=== PATIENT | female | born 1940 | race Caucasian/White ===

== ENCOUNTER 2017-08-06 14:28 | Inpatient (IN) | payer OTHER ==
[~2017-08-06] VITALS: Ht 165.1 cm; Wt 97.1 kg
--- NOTE | 2017-08-06 15:13 | ED SYNCOPE COMPLAINT ---
History of Present Illness General Chief Complaint: Syncope and Near-Syncope Stated Complaint: BIBA SYNCOPE Source: patient, family Exam Limitations: no limitations Vital Signs & Intake/Output Vital Signs & Intake/Output Vital Signs Date Time Temp Pulse Resp B/P B/P Pulse O2 O2 Flow FiO2 Mean Ox Delivery Rate 08/06 1936 97.8 69 20 167/89 99 Room Air 08/06 1721 98.0 64 18 167/74 98 Room Air 08/06 1625 97.6 60 18 166/72 98 Room Air 08/06 1451 Room Air 08/06 1433 97.6 61 18 170/59 98 Room Air Allergies Coded Allergies: No Known Allergies (08/06/17) Triage Note: PT BIBA FROM HOME WITH C/O WITNESSED EPISODE OF SYNCOPE VS SEIZURE. FAMILY PRESENT REPORTS THAT PT WAS SITTING IN CHAIR WHEN SHE HAD APPROXIMATELY 4 MINUTES OF UNRESPONSIVENESS. NO FALL. NO HEAD STRIKE. FAMILY REPORTS THAT AFTER EPISODE, PT APPEARED TO BE STARING BLANKLY, HAD DIMINISHED VERBAL ABILITY AND INCREASED FORGETFULNESS. PT ARRIVES AWAKE AND ALERT, ANSWERING QUESTIONS APPROPRIATELY. VSS EN ROUTE WITH BG = 134 Triage Nurses Notes Reviewed? yes Timing: single episode today Precipitating Factors: none Episode Description: She was sitting at the table when she suddenly became unresponsive Loss of Consciousness: prolonged (minutes) LMP (ages 10-50): post menopausal : No Patient currently breastfeeds: No HPI: 77-year-old female past medical history of CVA, TIA, carotid stenosis presents for evaluation of a syncopal episode. According the patient's family patient was in her usual state of health and was sitting at the table having coffee. The patient suddenly became unresponsive her head slumped down onto her chest. Family attempted to wake her up the patient remained unresponsive. According to family she was out for 3 or 4 minutes. Patient slowly began to regain consciousness but was unable to speak. The time EMS arrived she was able to say some words. When she arrived to the emergency department she had returned to her baseline. She denies any precipitating symptoms. There is no dizziness lightheaded breath. She does not remember the episode. The family is at bedside if you like she is currently on her baseline. She is on anticoagulation. Patient is usually wheelchair bound at baseline. She does do some ambulation with a walker but only very short distances. (Michi WYNN,Klaus) Reconcile Medications Acetaminophen/Diphenhydramine (Tylenol Pm Ex-Strength Caplet) 500 MG-25 MG TABLET 2 CAP PO QHS PAIN/SLEEP (Reported) Albuterol Sulfate (Ventolin Hfa) 90 MCG HFA.AER.AD 2 PUF INH AD PRN RESP. ( Reported) Atorvastatin Calcium 20 MG TABLET 1 TAB PO DAILY CHOLESTEROL (Reported) Brinzolamide (Azopt) 1 % DROPS.SUSP 1 GTT OU BID BOTH EYES (Reported) Budesonide/Formoterol Fumarate (Symbicort 160-4.5 Mcg Inhaler) 160 MCG-4.5 MCG/ ACTUATION HFA.AER.AD 2 PUF INH BID RESP. (Reported) Donepezil HCl 10 MG TABLET 1 TAB PO DAILY MEMORY (Reported) Gabapentin 600 MG TABLET 1 TAB PO BID NERVE PAIN (Reported) Labetalol HCl 200 MG TABLET 1 TAB PO BID BP (Reported) Lisinopril 10 MG TABLET 1 TAB PO DAILY BP (Reported) Multiple Vitamin (Multivitamins) 1 EACH TABLET 1 TAB PO DAILY SUPPLEMENT ( Reported) Nifedipine (Nifedipine ER) 90 MG TABLET.ER 1 TAB PO DAILY BP (Reported) Oxybutynin Chloride (Oxybutynin Chloride ER) 10 MG TAB.ER.24 1 TAB PO DAILY BLADDER (Reported) Rivaroxaban (Xarelto) 15 MG TABLET 1 TAB PO DAILY BLOOD THINNER (Reported) Travoprost (Travatan Z) 0.004 % DROPS 1 GTT OU QPM BOTH EYES (Reported) (Tommie Machuca DO) Past History Travel History Traveled to [place] past 21 day No Medical History Any Pertinent Medical History? see below for history Surgical History Surgical History: non-contributory Family History Hx Contributory? No (Klaus Vilchis) Review of Systems Review of Systems Constitutional: Reports: no symptoms. EENTM: Reports: no symptoms. Respiratory: Reports: no symptoms. Cardiovascular: Reports: no symptoms. GI: Reports: no symptoms. Genitourinary: Reports: no symptoms. Musculoskeletal: Reports: no symptoms. Skin: Reports: no symptoms. Neurological/Psychological: Reports: see HPI (SYNCOPE ). All Other Systems: Reviewed and Negative (Klaus Vilchis) Physical Exam Physical Exam General Appearance: well developed/nourished, no apparent distress, alert, awake Head: atraumatic, normal appearance Eyes: Bilateral: normal appearance, EOMI, other (MIOTIC PUPILS ). Ears, Nose, Throat: normal pharynx, normal ENT inspection, hearing grossly normal Neck: normal inspection, supple, full range of motion, no carotid bruits Respiratory: normal breath sounds, chest non-tender, no respiratory distress, lungs clear Cardiovascular: regular rate/rhythm, normal peripheral pulses Gastrointestinal: soft, non-tender Back: normal inspection, normal range of motion, no vertebral tenderness Extremities: normal inspection, normal range of motion, no edema Psychiatric: awake, alert, oriented x 3 Cranial Nerves: normal hearing, normal speech, PERRL Coordination/Gait: normal finger to nose Motor/Sensory: no motor/sensory deficits, weak motor strength RLE (baseline), weak motor strength LLE (baseline), moving all extremitiES Skin: intact, normal color, warm/dry Core Measures ACS in differential dx? No CVA/TIA Diagnosis: No Sepsis Present: No Sepsis Focused Exam Completed? No (Klaus Vilchis) Progress Differential Diagnosis: AMI, aortic dissection, aortic valve, drug induced syncope, orthostatic syncope, pulmonary embolus, seizure, subarachnoid hem., TIA /CVA, vasodepressor syncope, ventricular tach/fib Plan of Care: Orders Procedure Date/time Status Heart Healthy Diet 08/07 B Active CBC WITHOUT DIFFERENTIAL 08/07 599 Active BASIC ELECTROLYTES PLUS BUN&CR 08/07 599 Active Heart Healthy Diet 08/06 D Complete TROPONIN LEVEL 08/06 2130 Active EKG 08/06 2130 Active Pathway - chart 08/06 1853 Active House Staff 08/06 1853 Active Patient Data 08/06 1853 Active Code Status 08/06 1853 Active ECHOCARDIOGRAM 08/06 1853 Active Patient Data 08/06 1748 Active ED Holding Orders 08/06 1719 Active Admit to inpatient 08/06 1719 Active Vital Signs 08/06 1719 Active Code Status 08/06 1719 Complete VIT D 25 HYDROXY 08/06 1530 Active THYROID STIMULATING HORMONE 08/06 1530 Active TOTAL IRON BINDING CAPACITY 08/06 1530 Active LIPID PANEL 08/06 1530 Active GLYCOSYLATED HGB 08/06 1530 Active FREE T4 08/06 1530 Active FOLIC ACID 08/06 1530 Active FERRITIN 08/06 1530 Active SERUM IRON 08/06 1530 Active Add-on Test (ER Only) 08/06 1513 Active Intake & Output 08/06 1446 Active Telemetry/Size Worker 08/06 1433 Active URINALYSIS 08/06 143 Active TROPONIN LEVEL 08/06 1433 Active PROLACTIN 08/06 143 Active COMPREHENSIVE METABOLIC PANEL 08/06 143 Active CBC WITHOUT DIFFERENTIAL 08/06 1432 Complete EKG 08/06 1432 Active [id number] DOPPLER 08/06 UNK Active House Staff 08/06 UNK Active Lab Add-on Test 08/06 UNK Active VTE Mechanical Prophylaxis 08/06 UNK Active MISTAKE 08/06 UNK Active Activity/Ambulation 08/06 UNK Active ELECTROENCEPHALOGRAM 08/06 UNK Active Laboratory Tests 08/06/17 1530: Anion Gap 10, Estimated GFR > 60, BUN/Creatinine Ratio 17.8, Glucose 144 H, Hemoglobin A1c Pending, Calcium 9.6, Iron 44, TIBC 389, Ferritin 7.5 L, Total Bilirubin 0.5, AST 19, ALT 23, Alkaline Phosphatase 68, Troponin I < 0.01, Total Protein 6.2 L, Albumin 3.8, Globulin 2.4, Albumin/Globulin Ratio 1.6, Triglycerides 67, Cholesterol 133, LDL Cholesterol, Calc 55 L, HDL Cholesterol 65 H, Cholesterol/HDL Ratio 2.0, 25-OH Vitamin D Total 27.6 L, Folate Pending, TSH 1.860, Free T4 0.97, Prolactin 28.6 H, CBC w Diff NO MAN DIFF REQ, RBC 4.59 , MCV 79.8 L, MCH 25.9 L, MCHC 32.5 L, RDW 17.7 H, MPV 8.1, Gran % 78.3 H, Lymphocytes % 10.5 L, Monocytes % 6.5, Eosinophils % 4.3, Basophils % 0.4, Absolute Granulocytes 5.3, Absolute Lymphocytes 0.7 L, Absolute Monocytes 0.4, Absolute Eosinophils 0.3, Absolute Basophils 0 Patient seen and evaluated. She is here for syncopal episode versus possible TIA. Currently she is back to her baseline. She is at her neurologic baseline. She never had chest pain or shortness of breath. Initial EKG does not show any acute finding. Labs ordered CT head ordered. Blood work is within normal limits. CT head is negative for any acute findings. Chest x-ray clear. Patient currently is at her baseline. She spends most of her time in a wheelchair and goes only short distances with a walker. Due to patient's advanced age and history of previous CVA TIAs she will be admitted for observation after a syncopal episode. She will require telemetry, serial labs, serial EKGs, echocardiogram, MRI, carotid Doppler, cardiology consult. Case discussed with Dr. Machuca he agrees. Diagnostic Imaging: Viewed by Me: Radiology Read, CT Scan. Discussed w/RAD: Radiology Read, CT Scan. Radiology Impression: PATIENT: SUMIT STEVENS PRESENT AGE: 77 PATIENT ACCOUNT NO: [id number] : 38 LOCATION: [facility] ORDERING PHYSICIAN: Klaus WYNN SERVICE DATE: 08/06/17 EXAM TYPE: CAT - CT HEAD WO IV CONTRAST EXAMINATION: CT HEAD WITHOUT CONTRAST CLINICAL INFORMATION: Syncope. Evaluate for intracranial mass. COMPARISON: No relevant prior imaging. TECHNIQUE: Contiguous axial imaging was performed from the skull base to vertex without intravenous administration of contrast. DLP: 615.19 mGy- cm FINDINGS: There is no acute intracranial hemorrhage or abnormal extra-axial collection. No intracranial mass effect or midline shift. Lateral and third ventricles are slightly prominent and there is proportionate prominence of the subarachnoid spaces reflecting a moderate degree of global parenchymal volume loss. There are multiple chronic lacunar infarcts involving the basal ganglia and thalami. Numerous chronic small vessel ischemic changes within the periventricular white matter. Grossly no evidence of acute territorial infarct. The calvarium and skull base are intact. Mastoid air cells and middle ear cavities are well aerated. Visualized paranasal sinuses are well aerated. IMPRESSION: There is moderate global cerebral parenchymal volume loss and numerous chronic small vessel ischemic changes. No evidence of acute territorial infarct or hemorrhage. DICTATED BY: June ROGERS,Sebastian Rangel DATE/TIME DICTATED:09/16 EDITOR & CO FOUNDER:PATY DATE/TIME TRANSCRIBED:08/06/171558 CONFIDENTIAL, DO NOT COPY WITHOUT APPROPRIATE AUTHORIZATION. CXR Impression: PATIENT: SUMIT STEVENS PRESENT AGE: 77 PATIENT ACCOUNT NO: [id number] : 38 LOCATION: [facility] ORDERING PHYSICIAN: Klaus WYNN SERVICE DATE: 08/06/17 EXAM TYPE: RAD - XRY-PORTABLE CHEST XRAY EXAMINATION: XR PORTABLE CHEST CLINICAL INFORMATION: Syncope COMPARISON: None TECHNIQUE: Portable frontal view of the chest was obtained. FINDINGS: The thoracic aorta is unfolded. The heart size is top normal to slightly enlarged. There is some platelike opacity in the left lower lung suggesting atelectasis or scar. No consolidation. No evidence of pulmonary edema. No pleural effusion or pneumothorax. No acute osseous abnormality is visualized. Mild degenerative change of the spine. IMPRESSION: Borderline cardiomegaly. No acute abnormality. DICTATED BY: Mayo Vergara MD DATE/TIME DICTATED:08/06/171557 EDITOR & CO FOUNDER:PATY DATE/TIME TRANSCRIBED:1557 CONFIDENTIAL, DO NOT COPY WITHOUT APPROPRIATE AUTHORIZATION. < Electronically signed in Other Vendor System> SIGNED BY: Mayo Vergara MD 08/06/17 1603 Initial ED EKG: normal sinus rhythm, BORDERLINE IN FERIOR T WAVE CHANGES (Klaus iVlchis) Departure Departure Disposition: STILL A PATIENT Condition: Stable Clinical Impression Primary Impression: Syncope Qualifiers: Syncope type: unspecified Qualified Code: R55 - Syncope and collapse Referrals: Patient Has No Primary Care Dr (PCP/Family) Departure Forms: Customer Survey General Discharge Information Observation Note Spoke With: Justin Hall MD Physician Advisor Notified: TOMMIE MACHUCA DO Place Patient In: Non-ED OBS Care Area Rationale for Observation: My rational for observation is as follows [elemetry, serial labs, serial EKGs, echocardiogram, MRI, carotid Doppler, cardiology consult]. (Klaus Vilchis) Admission Note Spoke With: Justin Hall MD Documentation of Exam: Documentation of any treatments & extenuating circumstances including Concerns Regarding Discharge (functional status, medication knowledge or non-compliance, living conditions, etc.) that warrant an admission rather than observation: [The patient needs admission for serial troponins, telemetry monitoring, neuro checks every 6 hours, consider cardiology consultation] PA/WIRELESS ENGINEER Co-Sign Statement Statement: ED Attending supervision documentation- [x I saw and evaluated the patient. I have also reviewed all the pertinent lab results and diagnostic results. I agree with the findings and the plan of care as documented in the PA's/WIRELESS ENGINEER's documentation. [] I have reviewed the ED Record and agree with the PA's/WIRELESS ENGINEER's documentation. [] Additions or exceptions (if any) to the PAs/WIRELESS ENGINEER's note and plan are summarized below: [] 77-year-old female visiting from [place]. She had a syncopal episode and was out for a period of minutes according to the family. Now she denies chest pain. EKG shows nonspecific changes. She has not low risk on the [place] syncope rule. She is therefore being admitted for serial troponins and telemetry monitoring. (Tommie Machuca DO.)
[2017-08-06 15:36] LABS: ABSOLUTE BASOPHIL COUNT 0 /CUMM (0.0-0.2); ABSOLUTE EOSINOPHIL COUNT 0.3 /CUMM (0.0-0.7); ABSOLUTE GRANULOCYTE CT 5.3 /CUMM (1.4-6.5); ABSOLUTE LYMPH COUNT 0.7 /CUMM (1.2-3.4); ABSOLUTE MONOCYTE COUNT 0.4 /CUMM (0.10-0.60); BASOPHIL % 0.4 % (0.0-2.0); EOSINOPHIL % 4.3 % (0-5); GRANULOCYTE % 78.3 % (42.2-75.2); HEMATOCRIT 36.7 % (37-47); MEAN CORPUSCULAR HGB 25.9 PG (27.0-31.0); MEAN CORPUSCULAR HGB CONC 32.5 G/DL (33.0-37.0); MEAN CORPUSCULAR VOLUME 79.8 FL (81.0-99.0); MEAN PLATELET VOLUME 8.1 FL (7.4-10.4); PLATELET COUNT 290 /CUMM (130-400); RBC DISTRIBUTION WIDTH 17.7 % (11.5-14.5); RED BLOOD CELL CT 4.59 /CUMM (4.20-5.40); WHITE BLOOD CELL COUNT 6.8 /CUMM (4.8-10.8)
--- NOTE | 2017-08-06 16:03 | RADIOLOGY REPORT ---
EXAMINATION: XR PORTABLE CHEST CLINICAL INFORMATION: Syncope COMPARISON: None TECHNIQUE: Portable frontal view of the chest was obtained. FINDINGS: The thoracic aorta is unfolded. The heart size is top normal to slightly enlarged. There is some platelike opacity in the left lower lung suggesting atelectasis or scar. No consolidation. No evidence of pulmonary edema. No pleural effusion or pneumothorax. No acute osseous abnormality is visualized. Mild degenerative change of the spine. IMPRESSION: Borderline cardiomegaly. No acute abnormality.
--- NOTE | 2017-08-06 16:04 | CT SCAN REPORT ---
EXAMINATION: CT HEAD WITHOUT CONTRAST CLINICAL INFORMATION: Syncope. Evaluate for intracranial mass. COMPARISON: No relevant prior imaging. TECHNIQUE: Contiguous axial imaging was performed from the skull base to vertex without intravenous administration of contrast. DLP: 615.19 mGy-cm FINDINGS: There is no acute intracranial hemorrhage or abnormal extra-axial collection. No intracranial mass effect or midline shift. Lateral and third ventricles are slightly prominent and there is proportionate prominence of the subarachnoid spaces reflecting a moderate degree of global parenchymal volume loss. There are multiple chronic lacunar infarcts involving the basal ganglia and thalami. Numerous chronic small vessel ischemic changes within the periventricular white matter. Grossly no evidence of acute territorial infarct. The calvarium and skull base are intact. Mastoid air cells and middle ear cavities are well aerated. Visualized paranasal sinuses are well aerated. IMPRESSION: There is moderate global cerebral parenchymal volume loss and numerous chronic small vessel ischemic changes. No evidence of acute territorial infarct or hemorrhage.
[2017-08-06] MEDS ORDERED: LABETALOL HCL200 M1 PO (17:09)
[2017-08-06] MEDS ORDERED: DONEPEZIL HCL10 M1 PO (17:10)
[2017-08-06] MEDS ORDERED: LISINOPRIL10 M1 PO (17:11)
[2017-08-06] MEDS ORDERED: NIFEDIPINE ER90 M1 PO (17:11)
[2017-08-06] MEDS ORDERED: XARELTO15 M2 PO (17:11)
[2017-08-06] MEDS ORDERED: OXYBUTYNIN CHLO10 M1 PO (17:11)
[2017-08-06] MEDS ORDERED: TRAVATAN Z5 ML OU (17:12)
[2017-08-06] MEDS ORDERED: ATORVASTATIN CA20 M1 PO (17:12)
[2017-08-06] MEDS ORDERED: GABAPENTIN600 M1 PO (17:12)
[2017-08-06] MEDS ORDERED: AZOPT10 ML OU (17:13)
[2017-08-06] MEDS ORDERED: TYLENOL PM EX-1 EACH PO (17:13)
[2017-08-06] MEDS ORDERED: SYMBICORT 16010.2 GM INH (17:14)
[2017-08-06] MEDS ORDERED: MULTIVITAMINS1 EAC9 PO (17:14)
[2017-08-06] MEDS ORDERED: VENTOLIN HFA18 GM INH (17:14)
--- NOTE | 2017-08-06 17:47 | History & Physical ---
Klaus Pena MD 08/06/17 1747: General Information and HPI History of Present Illness: Ms. 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 The patient lives in [place] and was visiting her daughter. She was having breakfast around 1 PM when she suddenly "passed out". The patient remembers waking up in the ambulance. Per her daughter, the patient went white but her eyes remained opened. Her head slumped and she was not responsive but she maintained her posture. She could not talk during this as well. The episode lasted about 3-4 minutes. She did not have any abnormal movements or jerking motions during this episode. She did not have any incontinence as well. The patient denies any prodromal symptoms and feels fine now. She denies any chest pain, abdominal pain, nausea, vomiting, diarrhea, fever, chills, or dysuria. She does note that she has had shortness of breath with exertion over the past couple of months. The patient also notes that she recently drove from [place] over the course of 3 days, spending many hours in the car. She is a former smoker, denies alcohol or drug use. Allergies/Medications Allergies: Coded Allergies: No Known Allergies (08/06/17) Home Med list Acetaminophen/Diphenhydramine (Tylenol Pm Ex-Strength Caplet) 500 MG-25 MG TABLET 2 CAP PO QHS PAIN/SLEEP (Reported) Albuterol Sulfate (Ventolin Hfa) 90 MCG HFA.AER.AD 2 PUF INH AD PRN RESP. ( Reported) Atorvastatin Calcium 20 MG TABLET 1 TAB PO DAILY CHOLESTEROL (Reported) Brinzolamide (Azopt) 1 % DROPS.SUSP 1 GTT OU BID BOTH EYES (Reported) Budesonide/Formoterol Fumarate (Symbicort 160-4.5 Mcg Inhaler) 160 MCG-4.5 MCG/ ACTUATION HFA.AER.AD 2 PUF INH BID RESP. (Reported) Donepezil HCl 10 MG TABLET 1 TAB PO DAILY MEMORY (Reported) Gabapentin 600 MG TABLET 1 TAB PO BID NERVE PAIN (Reported) Labetalol HCl 200 MG TABLET 1 TAB PO BID BP (Reported) Lisinopril 10 MG TABLET 1 TAB PO DAILY BP (Reported) Multiple Vitamin (Multivitamins) 1 EACH TABLET 1 TAB PO DAILY SUPPLEMENT ( Reported) Nifedipine (Nifedipine ER) 90 MG TABLET.ER 1 TAB PO DAILY BP (Reported) Oxybutynin Chloride (Oxybutynin Chloride ER) 10 MG TAB.ER.24 1 TAB PO DAILY BLADDER (Reported) Rivaroxaban (Xarelto) 15 MG TABLET 1 TAB PO DAILY BLOOD THINNER (Reported) Travoprost (Travatan Z) 0.004 % DROPS 1 GTT OU QPM BOTH EYES (Reported) Past History Travel History Traveled to [place] past 21 day No Medical History Neurological: CVA, TIA EENT: glaucoma Cardiovascular: hypertension, hyperlipidemia Respiratory: asthma Psychiatric: anxiety Surgical History Surgical History: non-contributory Past Family/Social History Psychosocial History Smoking Status: Former Smoker ETOH Use: denies use Illicit Drug Use: denies illicit drug use Review of Systems Review of Systems Constitutional: Reports: no symptoms. EENTM: Reports: no symptoms. Cardiovascular: Reports: see HPI. Respiratory: Reports: see HPI. GI: Reports: no symptoms. Genitourinary: Reports: no symptoms. Musculoskeletal: Reports: no symptoms. Skin: Reports: no symptoms. Neurological/Psychological: Reports: see HPI. Hematologic/Endocrine: Reports: no symptoms. Immunologic/Allergic: Reports: no symptoms. All Other Systems: Reviewed and Negative Exam & Diagnostic Data Last 24 Hrs of Vital Signs/I&O Vital Signs Date Time Temp Pulse Resp B/P B/P Pulse O2 O2 Flow FiO2 Mean Ox Delivery Rate 08/06 1721 98.0 64 18 167/74 98 Room Air 08/06 1625 97.6 60 18 166/72 98 Room Air 08/06 1451 Room Air / 1433 97.6 61 18 170/59 98 Room Air Intake & Output 08/06 1600 /07 0800 06/ 0000 Intake Total Output Total Balance Output, Urine Physical Exam General Appearance Alert, Oriented X3, Cooperative, No Acute Distress Skin No Rashes, No Breakdown, No Significant Lesion HEENT Atraumatic, PERRLA, EOMI Neck Supple, +2 Carotid Pulse wo Bruit Cardiovascular Regular Rate, Normal S1, Normal S2 Lungs Clear to Auscultation Abdomen Normal Bowel Sounds, Soft, No Tenderness Neurological Normal Speech, Normal Tone, Sensation Intact, Cranial Nerves 3-12 NL, LUE and LLE 3/4 strength. Right side normal. No ataxia. Extremities Normal Pulses, 1+ pitting edema bilaterally Last 24 Hrs of Labs/Fletcher: Laboratory Tests 08/06/17 1530: Anion Gap 10, Estimated GFR > 60, BUN/Creatinine Ratio 17.8, Glucose 144 H, Calcium 9.6, Total Bilirubin 0.5, AST 19, ALT 23, Alkaline Phosphatase 68, Troponin I < 0.01, Total Protein 6.2 L, Albumin 3.8, Globulin 2.4, Albumin/ Globulin Ratio 1.6, Prolactin 28.6 H, CBC w Diff NO MAN DIFF REQ, RBC 4.59, MCV 79.8 L, MCH 25.9 L, MCHC 32.5 L, RDW 17.7 H, MPV 8.1, Gran % 78.3 H, Lymphocytes % 10.5 L, Monocytes % 6.5, Eosinophils % 4.3, Basophils % 0.4, Absolute Granulocytes 5.3, Absolute Lymphocytes 0.7 L, Absolute Monocytes 0.4, Absolute Eosinophils 0.3, Absolute Basophils 0 Assessment/Plan Assessment: Ms. 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 On presentation, vital signs were T 97.6, HR 61, RR 18, BP 170/59, saturating 98 % on room air. Laboratories are significant for hemoglobin 1.9, MCV 79.8, glucose 144, prolactin 28.6, troponin less than 0.01, LFTs negative. Chest x- ray showed cardiomegaly. CT head showed moderate global cerebral parenchymal volume loss and numerous chronic small vessel ischemic changes with no evidence of acute territorial infarct or hemorrhage. She will be admitted to general medicine and treated for the following problems: 1. Syncope 2. Microcytic anemia #Syncope: Patient presents after a syncopal episode. Given her extensive history of stroke, most concerning would be a transient ischemic attack. Other items in the differential includes seizure given the elevated prolactin and arrhythmia. -TTE -EKG and troponins 2 -Telemetry monitoring -Consider neurology consult -Hold oxybutynin -Carotid artery ultrasound -TSH -Lipid panel -Hg1AC #Microcytic anemia: Patient is asymptomatic with no signs of active bleeding.. -Iron studies #Chronic medical problems: -Continue other home medications DVT prophylaxis with rivaroxaban Heart healthy diet DNR/DNI As Ranked By This Provider Problem List: 1. Syncope Qualifiers Syncope type: unspecified Qualified Code: R55 - Syncope and collapse Core Measures/Misc (11/16) Acute Coronary Syndrome ACS Diagnosis: No Congestive Heart Failure Congestive Heart Failure Diagnosis No Cerebrovascular Accident CVA/TIA Diagnosis: Yes NIH Stroke Scale: Total 2 Date Last Known Well: 08/06/17 Time Last Known Well: 0100 Reason tPA not ordered Medical Contraindication Swallow Evaluation Pass Current/Past Hx AFib/AFlutter No VTE (View Protocol) VTE Risk Factors Age>40 No Mechanical VTE Prophylaxis d/t N/A MechProphylax Ordered No VTE Pharm Prophylaxis d/t NA PharmProphylax ordered Sepsis (View protocol) Sepsis Present: No If YES complete Sepsis Event Note If YES complete Sepsis Event Note Clemente Hand MD 08/06/17 1751: Core Measures/Misc (11/16) Sepsis (View protocol) If YES complete Sepsis Event Note If YES complete Sepsis Event Note Resident Review Statement Resident Statement: examined this patient, discussed with internet sales associate, agreed with internet sales associate, discussed with family Other Findings: 77 year old woman with past medical history of multiple CVAs with residual left- sided deficits, hypertension, hyperlipidemia, bilateral carotid disease status post left-sided repair in April 2016, urinary incontinence on oxybutynin, and dementia on donepezil brought in by ambulance for evaluation of a witnessed episode of unresponsiveness. Patient is originally from [place] and is here visiting family. She traveled up here by car in a trip that lasted 3 days. She was at her family members house this afternoon when around 130 she was talking to her daughter when she suddenly stopped responding and looked straight down at the floor with her eyes open. This episode lasted for approximately 3-4 minutes. She did not fall, bite her tongue, have shaking movements, urinary/bowel incontinence, or hit her head. After the episode she was unable to speak and was mildly confused. Patient became aware some time in the ambulance on her way to the [facility] ED. Upon arrival to the [facility] her deficits had reportedly completely resolved. Presently patient states that she feels well and would like to be discharged home. Denies any current complaints. Review of systems She otherwise denies any headache, fever, chills, chest pain, palpitations, heartburn, shortness breath, cough, nausea, vomiting, diarrhea, constipation, urinary complaints. Objective Vitals Physical Exam -General: well developed, pleasant elderly woman in no acute distress -HEENT: NCAT, PERRLA, EOMI, anicteric sclera, moist mucous membranes -Neck: Supple, no JVD, trachea midline, no carotid bruit, left carotid surgical scar -Cardio: Normal S1/S2 without murmurs/gallops/rubs; regular rate and rhythm -Pulm: Clear to auscultation bilaterally -Abdomen: Soft, nontender, nondistended, bowel sounds intact -Neuro: * Mental status: Awake and alert, oriented to person/place/time * Sensation/coordination: Intact * Strength: 5/5 in RUE/RLL, 3/5LUE/LLL * Gait: Not assessed * Cranial nerves: Intact, Passed bedside swallow eval -Extremities: Normal pulses, 2+ bilateral nonpitting edema, left knee surgical scar Labs / Imaging / Studies -CBC: WBC 6.8, hemoglobin 11.9, hematocrit 36.7, platelet 290 -BMP: Na 142, K 4.2, Cl 103, CO2 29, BUN 16, creatinine 0.9, anion gap 10, glucose 144 -LFT: within normal limits -Misc: Troponin I <0.01, prolactin 28.6 -UA: Not sent -EK08/06/17 1447: normal sinus rhythm with T-wave inversions leads III and aVF -CXR: Borderline cardiomegaly. No acute abnormality. -CT Head without IV contrast: * There is moderate global cerebral parenchymal volume loss and numerous chronic small vessel ischemic changes. No evidence of acute territorial infarct or hemorrhage. Assessment 77 year old woman with multiple medical problems significant for several CVAs with residual left sided weakness, hypertension, carotid disease, and hyperlipidemia brought in by ambulance after suddenly lossing consciousness at home. Patient currently feels well and has no complaints. Her vital signs are significant for moderately elevated blood pressures. Physical exam demonstrates only her known residual left-sided deficits without any new focal issues. Labs including CBC, serum chemistry, hepatic function panel, and troponin remain unremarkable; prolactin is mildly elevated for unclear reasons. Chest x-ray is unremarkable. CT head demonstrated moderate global volume loss with chronic small vessel disease without any acute intracranial pathology. EKG was normal sinus rhythm with nonspecific ST-T wave changes. The etiology of patient's witnessed episode of unresponsiveness is unclear but does not in fact appear to be classically a TIA/CVA. However patient does have a significant cardio vascular/embolic history with significant carotid disease for which this must be considered. Seizure is also likely given patient's unresponsiveness with her eyes open and postevent confusion. It is possible when of patient's previous CVAs resulted in a epileptiform focus. Patient is to be admitted to the telemetry floor for stroke and CVA evaluation. Problem List -Witnessed Syncope, possible seizure versus TIA -History of CVA, with residual left sided weakness -History of fecal / urinary incontinence, on oxybutynin -Left carotid stenosis s/p repair April 2016, on Xarelto -Peripheral neuropathy, on Gabapentin -Hypertension -Hyperlipidemia -Dementia, on Donepezil -Glaucoma -Asthma -Former tobacco use Plan -Admit to telemetry -Telemetry monitoring -Continue home meds: atorvasatin, gabapenin, donepezil, nifedipine, labetalol, lisinopril -Hold oxybutynin due to anticholinergic properties -Consult with neurology for evaluation of TIA/CVA, syncope, seizure -Consult with cardiology for evaluation of cardiac causes of syncope -Check orthostatics -Check TSHR, B12, Folate, Vitamin D, Lipid panel -Consider EEG -Carotid Doppler -Echocardiogram -Serial troponin/EKG until peak, or negative sets -Pain control with acetaminophen -Regular Diet -DVT PPx with Xarelto -DNR / DNI Ulises ROGERS, [facility] 08/06/172037: Core Measures/Misc (11/16) Sepsis (View protocol) If YES complete Sepsis Event Note If YES complete Sepsis Event Note Attending MD Review Statement Attending Statement Attending MD Statement: examined this patient, discuss w/resident/PA/MILIEU COORDINATOR, agreed w/resident/PA/MILIEU COORDINATOR, reviewed images, amended to note Attending Assessment/Plan: 77 yo F with h/o Afib on Xarelto, CVA x2 with left sided deficits, recurrent TIA , carotid artery stenosis s/p left CEA, HTN, HLD, asthma, dementia, who is a resident of [place], and is currently visiting her daughter in [place], is brought in after an episode of witnessed unresponsiveness. Patient was sitting on a chair, finished her coffee and suddenly her head slumped downwards. Daughter witnessed the episode, noted that patient's eyes were open but she was not responding. She followed one command when daughter asked her to stick her tongue out and she did slowly, but otherwise did not follow any commands. There was no facial droop and patient was able to maintain her posture without any one side sagging down. She did not fall or hit her head. Episode lasted for 3-4 minutes. Patient has urinary incontinence at baseline. No tonic-clonic movements or tongue bite. Once EMS arrived, they put her on the stretcher wherein she was able to drag herself and say a few words. By the time she came to ER, she was at her baseline talking. Daughters do not report any episode of confusion or post ictal state. Daughter states this is how she presents when she has a TIA she is all white and stares with her eyes open, not unconscious and not responding. Last known TIA was many years ago. Patient is compliant with her meds. Patient has no prior h/o seizures. Patient follows with a Eye Technician at [place] and is due for a carotid doppler to evaluate need for right CEA. Patient has never seen a neurologist. Patient travelled with one of her twin daughters from [place] over a 3-[address]. At baseline she has exertional dyspnea and cough with minimal white phlegm that is unchanged. She is able to ambulate short distances with a walker/ cane. Patient had been feeling well, denies any prodromal symptoms or lightheadedness/ chest pain or palpitations. Vitals stable. Neuro exam: left sided deficit from old stroke, no nystagmus or tremors, no facial droop. AAO, in no distress, speech is clear, Chest few expiratory wheeze, Heart S1S2 regular, Abd soft, NT, LE b/l 1-2+ edema. Labs: microcytic anemia H/H 11.9/36.7, glucose 144, trop neg. Prolactin 28.6. Carotid doppler: no significant arterial stenosis involving internal carotid arteries. CXR: borderline cardiomegaly, left lower lung atelectasis, no acute abnormality. CT head: moderate global cerebral parenchymal volume loss and chronic small vessel ischemic changes. No acute infarct. EKG: sinus rhythm, TWI in III, aVF (no old EKG to compare), Qtc 444. Passed bedside swallow eval. Assessment and plan: 1. Unresponsive episode syncope vs. TIA, cannot rule out an absence seizure 2. H/o Afib on xarelto 3. H/o CVA x 2 and recurrent TIA 4. Essential hypertension 5. Dementia - Admit to Telemetry - Watch for arrhythmias - Neurochecks Q4 - Serial EKG and troponin - Obtain echocardiogram - Neuro and Cardio consults - Check orthostats - Obtain EEG - Resume all home meds lipitor, donepezil, labetalol, gabapentin, nifedipine, xarelto, albuterol, syymbicort, tylenol PM and glaucoma eye drops - Obtain records from patient's blood and plasma laboratory assistant at [place] - PT eval DVT ppx Xarelto. DNR/I.
--- NOTE | 2017-08-06 20:06 | ULTRASOUND REPORT ---
US DUPLEX CAROTID AND VERTEBRAL CLINICAL INFORMATION: History of endarterectomy. COMPARISON: None available. TECHNIQUE: Real-time ultrasound and Doppler techniques (integrating B-mode 2D vascular images, Doppler spectral analysis and color flow Doppler imaging) were utilized to interrogate the extracranial carotid and vertebral arteries bilaterally. The degree of stenosis determined by criteria similar to NASCET. FINDINGS: Right common carotid artery peak systolic velocity ranges between 53.9 and 64.5 cm/s with maximal end-diastolic velocity of 12.9 cm/s. Right internal carotid artery peak systolic velocity ranges between 59.2 and 81.5 cm/s with maximal end-diastolic velocity of 17.6 cm/s. There is antegrade flow within the right vertebral artery. There is calcific atherosclerotic plaque at the right carotid bifurcation. Left common carotid artery peak systolic velocity ranges between 72.7 and 94.4 cm/s with maximal end-diastolic velocity of 18.2 cm/s. Left internal carotid artery peak systolic velocity ranges between 101 and 115 cm/s with maximal end-diastolic velocity of 25.9 cm/s. There is antegrade flow within the left vertebral artery. There is calcific atherosclerotic disease at the left carotid bifurcation. IMPRESSION: No significant (< 50%) arterial stenosis involving the internal carotid arteries.
--- NOTE | 2017-08-06 20:38 | Admission Certification ---
Admission Certification Certification Statement - As attending physician, I certify that at the time of - admission, based on clinical presentation, severity of - symptoms, need for further diagnostic testing and - therapeutic interventions, and risk of adverse outcomes - without in-hospital treatment, in my clinical assessment, - this patient requires an acute hospital stay for a minimum - of two nights or longer. I have also considered psychsocial - factors such as support system, advanced age, financial - issues, cognitive issues, and failed out-patient treatments, - past re-admission history, safety of patient, and lack of - compliance as applicable. Specific rationale supporting this admission is: Unresponsive episode.
[2017-08-06 22:41] VITALS: BP 148/80
[2017-08-06 22:43] VITALS: BP 134/64; BP 162/78
[2017-08-07 06:33] VITALS: BP 156/72
--- NOTE | 2017-08-07 07:21 | PN- Housestaff ---
See Addendum Subjective Follow-up For: Syncope Tele-Events Since Last Visit: Sinus rhythm, 6080s Subjective: No overnight events. Patient feels well and slept well overnight. She had no further episodes of syncope. She denies any chest pain, abdominal pain, shortness of breath, nausea, vomiting, or diarrhea. Review of Systems Constitutional: Reports: no symptoms. EENTM: Reports: no symptoms. Cardiovascular: Reports: no symptoms. Respiratory: Reports: no symptoms. Gastrointestinal: Reports: no symptoms. Genitourinary: Reports: no symptoms. Musculoskeletal: Reports: no symptoms. Skin: Reports: no symptoms. Neurological/Psychological: Reports: no symptoms. Hematologic/Endocrine: Reports: no symptoms. Immunologic/Allergic: Reports: no symptoms. Objective Last 24 Hrs of Vital Signs/I&O Vital Signs Date Time Temp Pulse Resp B/P B/P Pulse O2 O2 Flow FiO2 Mean Ox Delivery Rate 08/07 0633 98.2 72 20 156/72 95 Room Air / 2243 97.4 67 20 162/78 97 Room Air / 2241 70 148/80 06/ 2223 70 148/80 06/07 2151 Room Air 06/ 1936 97.8 69 20 167/89 99 Room Air 06/07 1721 98.0 64 18 167/74 98 Room Air 06/07 1625 97.6 60 18 166/72 98 Room Air 06/07 1451 Room Air 06/07 1433 97.6 61 18 170/59 98 Room Air Intake & Output 08/07 0800 06/08 0000 /07 1600 Intake Total 380 440 Output Total Balance 380 440 Intake, Oral 380 440 Output, Urine Patient 97.069 kg Weight Weight Bed scale Measurement Method Physical Exam General Appearance: Alert, Oriented X3, Cooperative, No Acute Distress Cardiovascular: Regular Rate, Normal S1, Normal S2 Lungs: Clear to Auscultation Abdomen: Normal Bowel Sounds, Soft, No Tenderness Neurological: stable Extremities: edema bilaterally Current Medications: Current Medications Sig/Arabella Start time Last Medication Dose Route Stop Time Status Admin Acetaminophen 500 MG AT BEDTIME 08/07 2100 AC PO Albuterol Sulfate 2 PUF Q6P PRN 08/06 2359 DC INH Albuterol Sulfate 2 PUF Q6P PRN / 2145 AC INH Atorvastatin Calcium 20 MG 1700 06/07 2045 AC 06/07 PO 2217 Budesonide/ 2 PUF BID 08/06 2099 AC 08/07 Formoterol Fumarate INH 0020 Cholecalciferol 2,000 IU DAILY 08/07 899 AC PO Diphenhydramine HCl 25 MG AT BEDTIME 08/07 2099 DC PO Diphenhydramine HCl 25 MG AT BEDTIME 08/06 2315 AC 08/07 PO 0020 Donepezil HCl 10 MG DAILY 08/07 899 DC PO Donepezil HCl 10 MG AT BEDTIME 08/06 2199 AC 08/06 PO 2217 Ferrous Sulfate 325 MG DAILY 08/07 899 AC PO Gabapentin 600 MG BID 08/06 2099 AC 08/06 PO 2217 Labetalol HCl 200 MG BID 08/06 2099 AC 08/06 PO 2223 Lisinopril 10 MG DAILY 08/07 899 AC PO Multivitamins 1 TAB DAILY 08/07 899 AC Therapeutic PO Nifedipine 90 MG DAILY 08/07 899 AC PO Non-Formulary 0 SEE ADMIN CRITERIA 08/06 2114 UNV Medication ANY Non-Formulary 0 SEE ADMIN CRITERIA 08/06 2114 UNV Medication ANY Rivaroxaban 15 MG DAILY 08/07 899 DC PO Rivaroxaban 15 MG AT BEDTIME 08/06 2199 AC 08/07 PO 0020 Rivaroxaban 15 MG DAILY 08/06 2106 DC PO Last 24 Hrs of Lab/Fletcher Results Last 24 Hrs of Labs/Mics: Laboratory Tests 08/07/17 0604: Sodium Pending, Potassium Pending, Chloride Pending, Carbon Dioxide Pending, Anion Gap Pending, BUN Pending, Creatinine Pending, BUN/Creatinine Ratio Pending , CBC w Diff Pending, WBC Pending, RBC Pending, Hgb Pending, Hct Pending, MCV Pending, MCH Pending, MCHC Pending, RDW Pending, Plt Count Pending, MPV Pending 08/06/17 2130: Troponin I < 0.01 08/06/17 1530: Anion Gap 10, Estimated GFR > 60, BUN/Creatinine Ratio 17.8, Glucose 144 H, Hemoglobin A1c Pending, Calcium 9.6, Iron 44, TIBC 389, Ferritin 7.5 L, Total Bilirubin 0.5, AST 19, ALT 23, Alkaline Phosphatase 68, Troponin I < 0.01, Total Protein 6.2 L, Albumin 3.8, Globulin 2.4, Albumin/Globulin Ratio 1.6, Triglycerides 67, Cholesterol 133, LDL Cholesterol, Calc 55 L, HDL Cholesterol 65 H, Cholesterol/HDL Ratio 2.0, 25-OH Vitamin D Total 27.6 L, Folate > 20.0 H, TSH 1.860, Free T4 0.97, Prolactin 28.6 H, CBC w Diff NO MAN DIFF REQ, RBC 4.59, MCV 79.8 L, MCH 25.9 L, MCHC 32.5 L, RDW 17.7 H, MPV 8.1, Gran % 78.3 H, Lymphocytes % 10.5 L, Monocytes % 6.5, Eosinophils % 4.3, Basophils % 0.4, Absolute Granulocytes 5.3, Absolute Lymphocytes 0.7 L, Absolute Monocytes 0.4, Absolute Eosinophils 0.3, Absolute Basophils 0 Assessment/Plan Assessment: Ms. 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 Problem list: 1. Syncope 2. Microcytic anemia #Syncope: Patient presented after a syncopal episode. Given her extensive history of stroke, most concerning would be a transient ischemic attack. Other items in the differential includes seizure given the elevated prolactin and arrhythmia. Trops and EKG x2 have been negative. Carotid artery ultrasound was negative. -TTE -Telemetry monitoring -Appreciate cardiology and neurology recommendations -Hold oxybutynin -Carotid artery ultrasound -Hg1AC -EEG #Microcytic anemia: Patient is asymptomatic with no signs of active bleeding. Iron studies show low ferritin. -Ferrous sulfate supplementation #Chronic medical problems: -Continue other home medications DVT prophylaxis with rivaroxaban Heart healthy diet DNR/DNI Problem List: 1. Syncope Pain Ratin Pain Location: no Pain Goal: Remain pain free Pain Plan: see a/p Tomorrow's Labs & Rationales: no
[2017-08-07 07:32] LABS: ABSOLUTE BASOPHIL COUNT 0 /CUMM (0.0-0.2); ABSOLUTE EOSINOPHIL COUNT 0.4 /CUMM (0.0-0.7); ABSOLUTE GRANULOCYTE CT 3.9 /CUMM (1.4-6.5); ABSOLUTE LYMPH COUNT 1.5 /CUMM (1.2-3.4); ABSOLUTE MONOCYTE COUNT 0.6 /CUMM (0.10-0.60); BASOPHIL % 0.6 % (0.0-2.0); EOSINOPHIL % 5.9 % (0-5); GRANULOCYTE % 61.2 % (42.2-75.2); HEMATOCRIT 32.7 % (37-47); MEAN CORPUSCULAR HGB 26.1 PG (27.0-31.0); MEAN CORPUSCULAR VOLUME 79.2 FL (81.0-99.0); MEAN PLATELET VOLUME 8.4 FL (7.4-10.4); PLATELET COUNT 279 /CUMM (130-400); RBC DISTRIBUTION WIDTH 17.6 % (11.5-14.5); RED BLOOD CELL CT 4.13 /CUMM (4.20-5.40); WHITE BLOOD CELL COUNT 6.4 /CUMM (4.8-10.8)
--- NOTE | 2017-08-07 11:06 | ECHOCARDIOGRAM REPORT ---
SUMIT STEVENS Age: 77 : 1940 Gender: F Exam Date: 08/06/2017 19:40 Exam Location: ER Ht (in): 65 Wt (lb): 200 BSA: 2.07 BP: 176 / 74 Ordering Physician: Klaus Pena MD Referring Physician: Klaus Pena MD Technologist: Idalia Borjas RDCS Room Number: ER#[id number] Indications: STROKE Rhythm: Sinus Technical Quality: Fair FINDINGS Left Ventricle Normal size left ventricle. No obvious regional wall motion abnormalities. Normal left ventricular ejection fraction estimated at 60-65%. Right Ventricle Right ventricle not well visualized, grossly normal. Right Atrium Normal right atrial size. Left Atrium Mild left atrial dilatation. Mitral Valve Mitral valve thickened. Moderate mitral annular calcification. Trace to mild mitral regurgitation. Aortic Valve Trileaflet aortic valve. Diffuse thickening (sclerosis) of the aortic valve cusps without reduced excursion. No aortic stenosis. No aortic regurgitation. . Tricuspid Valve Tricuspid valve not well visualized, grossly normal. Trace tricuspid regurgitation. Pulmonic Valve Pulmonic valve not well visualized, grossly normal. Pericardium Minimal pericardial effusion (normal variant). Great Vessels Aortic root and proximal ascending aorta not well visualized, grossly normal. CONCLUSIONS 1. Moderate aortic sclerosis is present with no valvular stenosis or insufficiency. 2. Mitral leaflet thickening is present with moderate anular calcification and minimal to mild mitral insufficiency with mild left atrial enlargement. 3. There is no significant pericardial fluid present 4. The left ventricular chamber size and systolic function appear normal with no resting wall motion abnormalities. 5. Minimal tricuspid insufficiency is present. The RV systolic pressure was not accurately assessed. Andres Yuan M.D. (Electronically Signed) Final Date: 07 August 2017 11:05 MEASUREMENTS (Male / Female) Normal Values 2D ECHO LV Diastolic Diameter PLAX 4.5 cm 4.2 - 5.9 / 3.9 - 5.3 cm LV Systolic Diameter PLAX 2.1 cm 2.1 - 4.0 cm LV Fractional Shortening PLAX 53.3 % 25 - 46 % LV Ejection Fraction 2D Teich 84.4 % IVS Diastolic Thickness 1.2 cm LVPW Diastolic Thickness 1.2 cm LV Relative Wall Thickness 0.5 RV Internal Dim ED PLAX 3.1 cm 1.9 - 3.8 cm LVOT Diameter 1.9 cm Aortic Root Diameter 3.2 cm LA Volume 35.0 cm 18 - 58 / 22 - 52 cm Ascending Aorta Diameter 3.7 cm DOPPLER AV Peak Velocity 141.0 cm/s AV Peak Gradient 8.0 mmHg AV Mean Velocity 99.3 cm/s AV Mean Gradient 5.0 mmHg AV Velocity Time Integral 41.1 cm LVOT Peak Velocity 93.2 cm/s LVOT Peak Gradient 3.5 mmHg LVOT Mean Velocity 73.5 cm/s LVOT Mean Gradient 2.0 mmHg LVOT Velocity Time Integral 27.9 cm LVOT Stroke Volume 79.1 cm AV Area Cont Eq vti 1.9 cm AV Area Cont Eq pk 1.9 cm MV Peak Velocity 136.0 cm/s MV Peak Gradient 7.4 mmHg MV Mean Velocity 64.8 cm/s MV Mean Gradient 2.0 mmHg Mitral E Point Velocity 85.4 cm/s Mitral A Point Velocity 123.0 cm/s Mitral E to A Ratio 0.7 MV PHT Velocity 99.8 cm/s MV Deceleration [place] 380.0 cm/s MV Pressure Half Time 78.8 ms MV Area PHT 2.8 cm MV Deceleration Time 254.0 ms PV Peak Velocity 89.2 cm/s PV Peak Gradient 3.2 mmHg PV Mean Velocity 57.4 cm/s PV Mean Gradient 2.0 mmHg PV Velocity Time Integral 19.5 cm LV E' Lateral Velocity 8.4 cm/s Mitral E to LV E' Lateral Ratio 10.2 LV E' Septal Velocity 6.1 cm/s Mitral E to LV E' Septal Ratio 13.9
[2017-08-07] MEDS ORDERED: ATORVASTATIN CA40 M1 PO (14:03)
[2017-08-07] MEDS ORDERED: VITAMIN D31000 UNI2 PO (14:03)
[2017-08-07] MEDS ORDERED: FERROUS SULFAT325 M2 PO (14:03)
--- NOTE | 2017-08-07 14:04 | Patient Discharge Instructions ---
Discharge Instructions General Discharge Information You were seen/treated for: Syncope Watch for these problems: Fever, chest pain, shortness of breath Special Instructions: Please take all medications as directed. Please follow-up with primary care. You may be considered for additional Cardiac and Neurological work up (including an EEG if deemed necessarry) Diet Continue normal diet: Yes Activity Full Activity/No Limits: Yes Acute Coronary Syndrome Inclusion Criteria At DC or during hospital stay patient has or had the following: ACS DIAGNOSIS No Discharge Core Measures Meds if any: Prescribed or Continued at Discharge Meds if any: NOT Prescribed or Continued at Discharge Congestive Heart Failure Inclusion Criteria At DC or during hospital stay patient has or had the following: CHF DIAGNOSIS No Discharge Core Measures Meds if any: Prescribed or Continued at Discharge Meds if any: NOT Prescribed or Continued at Discharge Cerebrovascular accident Inclusion Criteria At DC or during hospital stay patient has or had the following: CVA/TIA Diagnosis Yes Discharge Core Measures Meds if any: Prescribed or Continued at Discharge Antithrombotic No Statin (required if LDL =>70) Yes Anticoagulant Yes Meds if any: NOT Prescribed or Continued at Discharge No Antithrombotic d/t Medical Contraindication Venous thromboembolism Inclusion Criteria VTE Diagnosis No VTE Type NONE VTE Confirmed by (Test) NONE Discharge Core Measures - Per Current guidelines, there needs to be overlap - treatment for the first 5 days of Warfarin therapy. - If discharged on Warfarin prior to 5 days of - overlap therapy, the patient will need to be - assessed for post discharge needs including - *Post discharge parental anticoagulation - *Warfarin and/or parental anticoagulation education - *Follow up date to check INR post discharge At least 5 days overlap therapy as Inpatient No Meds if any: Prescribed or Continued at Discharge Note: Overlap Therapy is Warfarin and Anticoagulant Meds if any: NOT Prescribed or Continued at Discharge
--- NOTE | 2017-08-07 14:08 | Discharge Summary ---
Visit Information Visit Dates Admission Date: 08/06/17 Discharge Date: 08/08/17 Hospital Course Course Attending Physician: Macho Piña MD Primary Care Physician: Patient Has No Primary Care Dr Hospital Course: Ms. 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 On presentation, vital signs were T 97.6, HR 61, RR 18, BP 170/59, saturating 98 % on room air. Laboratories are significant for hemoglobin 1.9, MCV 79.8, glucose 144, prolactin 28.6, troponin less than 0.01, LFTs negative. Chest x- ray showed cardiomegaly. CT head showed moderate global cerebral parenchymal volume loss and numerous chronic small vessel ischemic changes with no evidence of acute territorial infarct or hemorrhage. She was admitted to general medicine and treated for the following problems: 1. Neurocardiogenic syncope 2. Microcytic anemia #Syncope: Patient presented after a syncopal episode. Given her extensive history of stroke, most concerning would be a transient ischemic attack. Other items in the differential includes seizure given the elevated prolactin and arrhythmia. Trops and EKG x2 were negative. Carotid artery ultrasound was negative. TTE did not show any abnormalities. Cardiology and neurology were consulted. This is most most likely neurocardiogenic syncope. EEG was deferred per neurology. #Microcytic anemia: Patient is asymptomatic with no signs of active bleeding. Iron studies show low ferritin. She was started on ferrous sulfate supplementation and to continue this. She was also started on vitamin D supplementation. #Chronic medical problems: Her other home medications were continued. Her atorvastatin was increased to 40 mg and she should continue this. Allergies: Coded Allergies: No Known Allergies (08/06/17) Disposition Summary Disposition Principal Diagnosis: 1. Neurocardiogenic syncope Additional Diagnosis: 2. Microcytic anemia Discharge Disposition: home or self care Discharge Instructions General Discharge Information Code Status: Do Not Resucitate/Intubat Patient's Diet: Heart healthy diet Patient's Activity: As tolerated Follow-Up Instructions/Appts: Please take all medications as directed. Please follow-up with primary care. Medications at Discharge Discharge Medications: Stop taking the following medications: Atorvastatin Calcium (Atorvastatin Calcium) 20 MG TABLET ORAL DAILY Qty = 90 Continue taking these medications: Labetalol HCl (Labetalol HCl) 200 MG TABLET 1 Tablet ORAL TWICE DAILY Qty = 180 Comments: Last Taken:08/08/17 Time:801 Donepezil HCl (Donepezil HCl) 10 MG TABLET 1 Tablet ORAL DAILY Qty = 90 Comments: Last Taken:08/07/17 Time:2228 Lisinopril (Lisinopril) 10 MG TABLET 1 Tablet ORAL DAILY Qty = 90 Comments: Last Taken:08/08/17 Time:801 Rivaroxaban (Xarelto) 15 MG TABLET 1 Tablet ORAL DAILY Qty = 90 Comments: Last Taken:08/07/17 Time:2228 Nifedipine (Nifedipine ER) 90 MG TABLET.ER 1 Tablet ORAL DAILY Qty = 90 Comments: Last Taken:08/08/17 Time:801 Oxybutynin Chloride (Oxybutynin Chloride ER) 10 MG TAB.ER.24 1 Tablet ORAL DAILY Qty = 90 Comments: NOT GIVEN IN HOSPITAL Gabapentin (Gabapentin) 600 MG TABLET 1 Tablet ORAL TWICE DAILY Qty = 180 Comments: Last Taken:08/08/17 Time:802 Travoprost (Travatan Z) 0.004 % DROPS 1 Drop Both Eyes Every night Qty = 3 Comments: NOT GIVEN IN HOSPITAL Brinzolamide (Azopt) 1 % DROPS.SUSP 1 Drop Both Eyes TWICE DAILY Qty = 10 Comments: NOT GIVEN INHOSPITAL Acetaminophen/Diphenhydramine (Tylenol Pm Ex-Strength Caplet) 500 MG-25 MG TABLET 2 Capsule ORAL TAKE AT BEDTIME Comments: Last Taken: 08/07/17 Time: 2229 Multiple Vitamin (Multivitamins) 1 EACH TABLET 1 Tablet ORAL DAILY Comments: Last Taken:08/08/17 Time:802 Budesonide/Formoterol Fumarate (Symbicort 160-4.5 Mcg Inhaler) 160 MCG-4.5 MCG/ ACTUATION HFA.AER.AD 2 Puff Inhale through mouth TWICE DAILY Qty = 10 Comments: Last Taken: 08/07/17 Time:804 Albuterol Sulfate (Ventolin Hfa) 90 MCG HFA.AER.AD 2 Puff Inhale through mouth As Directed as needed for RESP. Qty = 54 Comments: NOT GIVEN IN HOSPITAL Start taking the following new medications: Atorvastatin Calcium (Atorvastatin Calcium) 40 MG TABLET 40 Milligram ORAL 5 PM Qty = 30 No Refills Instructions: . Comments: Last Taken:08/07/17 Time:1614 Ferrous Sulfate (Ferrous Sulfate) 325 MG (65 MG IRON) TABLET. 325 Milligram ORAL DAILY Qty = 30 No Refills Comments: Last Taken:08/08/17 Time:0803 Cholecalciferol (Vitamin D3) 1,000 UNIT TABLET 2,000 International Unit ORAL DAILY Qty = 30 No Refills Comments: Last Taken:08/08/17 Time:0803 Copies To: Lilly ROGERS,Nando; Kwabena ROGERS,Aleta Pearce
[2017-08-07 14:26] VITALS: BP 138/70
--- NOTE | 2017-08-07 15:47 | Cons- Neurology ---
General Information and HPI Consulting Request Date of Consult: 08/07/17 Requested By: Macho Piña MD Reason for Consult: Need for EEG Source of Information: patient, family Exam Limitations: no limitations History of Present Illness: 77 year old woman with a CVA in 1990 and residual very mild left weakness and gait instability requiring a walker but no seizures was at home with daughter 2 days ago sitting and became unreponsive. Per the daughter her head drooped forward, she became "white as a sheet" and markedly diaphoretic. She was held in the chair and remained unresponsive and clammy until the EMT crew placed her down on the gurney. No seizure activity. No previous or subsequent episodes. Currently feels well, wants to go home. Allergies/Medications Allergies: Coded Allergies: No Known Allergies (08/06/17) Home Med List: Acetaminophen/Diphenhydramine (Tylenol Pm Ex-Strength Caplet) 500 MG-25 MG TABLET 2 CAP PO QHS PAIN/SLEEP (Reported) Albuterol Sulfate (Ventolin Hfa) 90 MCG HFA.AER.AD 2 PUF INH AD PRN RESP. ( Reported) Atorvastatin Calcium 20 MG TABLET 1 TAB PO DAILY CHOLESTEROL (Reported) Atorvastatin Calcium 40 MG TABLET 40 MG PO 1700 Statin Brinzolamide (Azopt) 1 % DROPS.SUSP 1 GTT OU BID BOTH EYES (Reported) Budesonide/Formoterol Fumarate (Symbicort 160-4.5 Mcg Inhaler) 160 MCG-4.5 MCG/ ACTUATION HFA.AER.AD 2 PUF INH BID RESP. (Reported) Cholecalciferol (Vitamin D3) 1,000 UNIT TABLET 2,000 IU PO DAILY Vitamin D Donepezil HCl 10 MG TABLET 1 TAB PO DAILY MEMORY (Reported) Ferrous Sulfate 325 MG (65 MG IRON) TABLET.DR 325 MG PO DAILY Iron supplement Gabapentin 600 MG TABLET 1 TAB PO BID NERVE PAIN (Reported) Labetalol HCl 200 MG TABLET 1 TAB PO BID BP (Reported) Lisinopril 10 MG TABLET 1 TAB PO DAILY BP (Reported) Multiple Vitamin (Multivitamins) 1 EACH TABLET 1 TAB PO DAILY SUPPLEMENT ( Reported) Nifedipine (Nifedipine ER) 90 MG TABLET.ER 1 TAB PO DAILY BP (Reported) Oxybutynin Chloride (Oxybutynin Chloride ER) 10 MG TAB.ER.24 1 TAB PO DAILY BLADDER (Reported) Rivaroxaban (Xarelto) 15 MG TABLET 1 TAB PO DAILY BLOOD THINNER (Reported) Travoprost (Travatan Z) 0.004 % DROPS 1 GTT OU QPM BOTH EYES (Reported) Current Medications: Current Medications Sig/Arabella Start time Last Medication Dose Route Stop Time Status Admin Acetaminophen 500 MG AT BEDTIME 08/07 2099 AC PO Albuterol Sulfate 2 PUF Q6P PRN 08/06 2359 DC INH Albuterol Sulfate 2 PUF Q6P PRN 08/06 2145 AC INH Atorvastatin Calcium 40 MG 1700 08/07 1700 AC PO Atorvastatin Calcium 20 MG 1700 08/06 2045 DC 08/06 PO 2217 Budesonide/ 2 PUF BID 08/06 2099 AC 08/07 Formoterol Fumarate INH 0827 Cholecalciferol 2,000 IU DAILY 08/07 899 AC 08/07 PO 0821 Diphenhydramine HCl 25 MG AT BEDTIME 08/07 2099 DC PO Diphenhydramine HCl 25 MG AT BEDTIME 08/06 2315 DC 08/07 PO 0020 Donepezil HCl 10 MG DAILY 08/07 899 DC PO Donepezil HCl 10 MG AT BEDTIME 08/06 2200 AC 08/06 PO 2217 Ferrous Sulfate 325 MG DAILY 08/07 899 AC 08/07 PO 0821 Gabapentin 600 MG BID 08/06 2099 AC 08/07 PO 0821 Labetalol HCl 200 MG BID 08/06 2099 AC 08/07 PO 0821 Lisinopril 10 MG DAILY 08/07 899 AC 08/07 PO 0821 Multivitamins 1 TAB DAILY 08/07 899 AC 08/07 Therapeutic PO 0821 Nifedipine 90 MG DAILY 08/07 899 AC 08/07 PO 0822 Non-Formulary 0 SEE ADMIN CRITERIA 08/06 2114 UNV Medication ANY Non-Formulary 0 SEE ADMIN CRITERIA 08/06 2114 UNV Medication ANY Rivaroxaban 15 MG DAILY 08/07 899 DC PO Rivaroxaban 15 MG AT BEDTIME 08/06 2200 AC 08/07 PO 0020 Rivaroxaban 15 MG DAILY 08/06 2106 DC PO Review of Systems Review of Systems: On the complete medical ROS reports longstanding incontinence and arthralgias. 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 Home Services at Home: None Smoking Status: Former Smoker ETOH Use: denies use Illicit Drug Use: denies illicit drug use Exam & Diagnostic Data Vital Signs and I&O Vital Signs Date Time Temp Pulse Resp B/P B/P Pulse O2 O2 Flow FiO2 Mean Ox Delivery Rate 08/07 1426 98.1 73 20 138/70 95 Room Air /08 1023 Room Air /08 0822 72 156/72 / 0821 72 156/72 /08 0821 72 156/72 /08 0633 98.2 72 20 156/72 95 Room Air 06/07 2243 97.4 67 20 162/78 97 Room Air 06/07 2241 70 148/80 06/07 2223 70 148/80 06/07 2151 Room Air 06/07 1936 97.8 69 20 167/89 99 Room Air 06/07 1721 98.0 64 18 167/74 98 Room Air 06/07 1625 97.6 60 18 166/72 98 Room Air Intake & Output / 1600 06/08 0800 06/08 0000 Intake Total 500 380 440 Output Total Balance 500 380 440 Intake, Oral 500 380 440 Patient 214 lb Weight Weight Bed scale Measurement Method Physical Exam: Looks, well, no distress, overweight alert, oriented, speech and language OK. Recall OK VFF, EOMI, P3ERRL lower cranial nerves:normal motor: outsole rounder equal, tone OK minimal drift LUE, 4/5 BLE sensory Normal coord UE normal gait deferred DTRs symmetric, bilat babinskis Last 48 Hours of Lab Results: Laboratory Tests 08/07 08/06 0604 2130 Chemistry Sodium (137 - 145 mmol/L) 142 Potassium (3.5 - 5.1 mmol/L) 3.6 Chloride (98 - 107 mmol/L) 106 Carbon Dioxide (22 - 30 mmol/L) 27 Anion Gap (5 - 16) 9 BUN (7 - 17 mg/dL) 13 Creatinine (0.5 - 1.0 mg/dL) 0.8 Estimated GFR (>60 ml/min) > 60 BUN/Creatinine Ratio (7 - 25 %) 16.3 Troponin I (< 0.11 ng/ml) < 0.01 Hematology CBC w Diff NO MAN DIFF REQ WBC (4.8 - 10.8 /CUMM) 6.4 RBC (4.20 - 5.40 /CUMM) 4.13 L Hgb (12.0 - 16.0 G/DL) 10.8 L Hct (37 - 47 %) 32.7 L MCV (81.0 - 99.0 FL) 79.2 L MCH (27.0 - 31.0 PG) 26.1 L MCHC (33.0 - 37.0 G/DL) 33.0 RDW (11.5 - 14.5 %) 17.6 H Plt Count (130 - 400 /CUMM) 279 MPV (7.4 - 10.4 FL) 8.4 Gran % (42.2 - 75.2 %) 61.2 Lymphocytes % (20.5 - 51.1 %) 23.3 Monocytes % (1.7 - 9.3 %) 9.0 Eosinophils % (0 - 5 %) 5.9 H Basophils % (0.0 - 2.0 %) 0.6 Absolute Granulocytes (1.4 - 6.5 /CUMM) 3.9 Absolute Lymphocytes (1.2 - 3.4 /CUMM) 1.5 Absolute Monocytes (0.10 - 0.60 /CUMM) 0.6 Absolute Eosinophils (0.0 - 0.7 /CUMM) 0.4 Absolute Basophils (0.0 - 0.2 /CUMM) 0 08/06 08/06 1530 1433 Chemistry Sodium (137 - 145 mmol/L) 142 Potassium (3.5 - 5.1 mmol/L) 4.2 Chloride (98 - 107 mmol/L) 103 Carbon Dioxide (22 - 30 mmol/L) 29 Anion Gap (5 - 16) 10 BUN (7 - 17 mg/dL) 16 Creatinine (0.5 - 1.0 mg/dL) 0.9 Estimated GFR (>60 ml/min) > 60 BUN/Creatinine Ratio (7 - 25 %) 17.8 Glucose (65 - 99 mg/dL) 144 H Hemoglobin A1c (4.2 - 5.8 %) 5.7 Calcium (8.4 - 10.2 mg/dL) 9.6 Iron (37 - 170 ug/dL) 44 TIBC (265 - 497 ug/dL) 389 Ferritin (11.1 - 264 ng/mL) 7.5 L Total Bilirubin (0.2 - 1.3 mg/dL) 0.5 AST (14 - 36 U/L) 19 ALT (9 - 52 U/L) 23 Alkaline Phosphatase (<127 U/L) 68 Troponin I (< 0.11 ng/ml) < 0.01 Total Protein (6.3 - 8.2 g/dL) 6.2 L Albumin (3.5 - 5.0 g/dL) 3.8 Globulin (1.9 - 4.2 gm/dL) 2.4 Albumin/Globulin Ratio (1.1 - 2.2 %) 1.6 Triglycerides (<150 mg/dL) 67 Cholesterol (<200 MG/DL) 133 LDL Cholesterol, Calc (65 - 129 mg/dL) 55 L HDL Cholesterol (40 - 60 mg/dL) 65 H Cholesterol/HDL Ratio (0.00 - 4.23 %) 2.0 25-OH Vitamin D Total (30 - 100 ng/ml) 27.6 L Folate (2.76 - 20.0 ng/mL) > 20.0 H TSH (0.270 - 4.200 uIU/mL) 1.860 Free T4 (0.78 - 2.44 ng/dL) 0.97 Prolactin (3.0 - 18.6 ng/mL) 28.6 H Hematology CBC w Diff NO MAN DIFF REQ WBC (4.8 - 10.8 /CUMM) 6.8 RBC (4.20 - 5.40 /CUMM) 4.59 Hgb (12.0 - 16.0 G/DL) 11.9 L Hct (37 - 47 %) 36.7 L MCV (81.0 - 99.0 FL) 79.8 L MCH (27.0 - 31.0 PG) 25.9 L MCHC (33.0 - 37.0 G/DL) 32.5 L RDW (11.5 - 14.5 %) 17.7 H Plt Count (130 - 400 /CUMM) 290 MPV (7.4 - 10.4 FL) 8.1 Gran % (42.2 - 75.2 %) 78.3 H Lymphocytes % (20.5 - 51.1 %) 10.5 L Monocytes % (1.7 - 9.3 %) 6.5 Eosinophils % (0 - 5 %) 4.3 Basophils % (0.0 - 2.0 %) 0.4 Absolute Granulocytes (1.4 - 6.5 /CUMM) 5.3 Absolute Lymphocytes (1.2 - 3.4 /CUMM) 0.7 L Absolute Monocytes (0.10 - 0.60 /CUMM) 0.4 Absolute Eosinophils (0.0 - 0.7 /CUMM) 0.3 Absolute Basophils (0.0 - 0.2 /CUMM) 0 Urines Urine Color Cancelled Urine Clarity Cancelled Urine pH Cancelled Ur Specific Wirtz Cancelled Urine Protein Cancelled Urine Ketones Cancelled Urine Nitrite Cancelled Urine Bilirubin Cancelled Urine Urobilinogen Cancelled Ur Leukocyte Esterase Cancelled Ur Microscopic Cancelled Urine Hemoglobin Cancelled Urine Glucose Cancelled Imaging/Other Studies: CT Head: There is no acute intracranial hemorrhage or abnormal extra-axial collection. No intracranial mass effect or midline shift. Lateral and third ventricles are slightly prominent and there is proportionate prominence of the subarachnoid spaces reflecting a moderate degree of global parenchymal volume loss. There are multiple chronic lacunar infarcts involving the basal ganglia and thalami. Numerous chronic small vessel ischemic changes within the periventricular white matter. Grossly no evidence of acute territorial infarct. The calvarium and skull base are intact. Mastoid air cells and middle ear cavities are well aerated. Visualized paranasal sinuses are well aerated. IMPRESSION: There is moderate global cerebral parenchymal volume loss and numerous chronic small vessel ischemic changes. No evidence of acute territorial infarct or hemorrhage. ECHO: 1. Moderate aortic sclerosis is present with no valvular stenosis or insufficiency. 2. Mitral leaflet thickening is present with moderate anular calcification and minimal to mild mitral insufficiency with mild left atrial enlargement. 3. There is no significant pericardial fluid present 4. The left ventricular chamber size and systolic function appear normal with no resting wall motion abnormalities. 5. Minimal tricuspid insufficiency is present. The RV systolic pressure was not accurately assessed. Carotid dopplers: No significant stenosis Assessment/Plan Assessment: Syncope. No evidence of seizures Recommendations: OK to defer EEG Consult Acknowledgment - Thank you for your consult request.
--- NOTE | 2017-08-07 20:54 | Cons- Cardiology ---
General Information and HPI Consulting Request Date of Consult: 08/07/17 Requested By: Macho Piña MD Reason for Consult: possible syncope Source of Information: patient, family Exam Limitations: no limitations Allergies/Medications Allergies: Coded Allergies: No Known Allergies (08/06/17) Home Med List: Acetaminophen/Diphenhydramine (Tylenol Pm Ex-Strength Caplet) 500 MG-25 MG TABLET 2 CAP PO QHS PAIN/SLEEP (Reported) Albuterol Sulfate (Ventolin Hfa) 90 MCG HFA.AER.AD 2 PUF INH AD PRN RESP. ( Reported) Atorvastatin Calcium 20 MG TABLET 1 TAB PO DAILY CHOLESTEROL (Reported) Atorvastatin Calcium 40 MG TABLET 40 MG PO 1700 Statin Brinzolamide (Azopt) 1 % DROPS.SUSP 1 GTT OU BID BOTH EYES (Reported) Budesonide/Formoterol Fumarate (Symbicort 160-4.5 Mcg Inhaler) 160 MCG-4.5 MCG/ ACTUATION HFA.AER.AD 2 PUF INH BID RESP. (Reported) Cholecalciferol (Vitamin D3) 1,000 UNIT TABLET 2,000 IU PO DAILY Vitamin D Donepezil HCl 10 MG TABLET 1 TAB PO DAILY MEMORY (Reported) Ferrous Sulfate 325 MG (65 MG IRON) TABLET.DR 325 MG PO DAILY Iron supplement Gabapentin 600 MG TABLET 1 TAB PO BID NERVE PAIN (Reported) Labetalol HCl 200 MG TABLET 1 TAB PO BID BP (Reported) Lisinopril 10 MG TABLET 1 TAB PO DAILY BP (Reported) Multiple Vitamin (Multivitamins) 1 EACH TABLET 1 TAB PO DAILY SUPPLEMENT ( Reported) Nifedipine (Nifedipine ER) 90 MG TABLET.ER 1 TAB PO DAILY BP (Reported) Oxybutynin Chloride (Oxybutynin Chloride ER) 10 MG TAB.ER.24 1 TAB PO DAILY BLADDER (Reported) Rivaroxaban (Xarelto) 15 MG TABLET 1 TAB PO DAILY BLOOD THINNER (Reported) Travoprost (Travatan Z) 0.004 % DROPS 1 GTT OU QPM BOTH EYES (Reported) Current Medications: Current Medications Sig/Arabella Start time Last Medication Dose Route Stop Time Status Admin Acetaminophen 500 MG AT BEDTIME 08/07 2100 AC PO Albuterol Sulfate 2 PUF Q6P PRN 08/06 2359 DC INH Albuterol Sulfate 2 PUF Q6P PRN 08/06 2145 AC INH Atorvastatin Calcium 40 MG 1700 06/08 1700 AC 06/08 PO 1614 Atorvastatin Calcium 20 MG 1700 08/06 2045 DC 08/06 PO 2217 Budesonide/ 2 PUF BID 08/06 2099 AC 08/07 Formoterol Fumarate INH 0827 Cholecalciferol 2,000 IU DAILY 08/07 899 AC 08/07 PO 0821 Diphenhydramine HCl 25 MG AT BEDTIME 08/07 2100 DC PO Diphenhydramine HCl 25 MG AT BEDTIME 08/06 2315 DC 08/07 PO 0020 Donepezil HCl 10 MG DAILY 08/07 899 DC PO Donepezil HCl 10 MG AT BEDTIME 08/06 2200 AC 08/06 PO 2217 Ferrous Sulfate 325 MG DAILY 08/07 899 AC 08/07 PO 0821 Gabapentin 600 MG BID 08/06 2099 AC 08/07 PO 0821 Labetalol HCl 200 MG BID 08/06 2099 AC 08/07 PO 0821 Lisinopril 10 MG DAILY 08/07 899 AC 08/07 PO 0821 Multivitamins 1 TAB DAILY 08/07 899 AC 08/07 Therapeutic PO 0821 Nifedipine 90 MG DAILY 08/07 899 AC 08/07 PO 0822 Non-Formulary 0 SEE ADMIN CRITERIA 08/06 2114 UNV Medication ANY Non-Formulary 0 SEE ADMIN CRITERIA 08/06 2114 UNV Medication ANY Rivaroxaban 15 MG DAILY 08/07 899 DC PO Rivaroxaban 15 MG AT BEDTIME 08/06 2200 AC 08/07 PO 0020 Rivaroxaban 15 MG DAILY 08/06 2107 DC PO Past History Travel History Traveled to [place] past 21 day No Medical History Neurological: CVA, TIA EENT: glaucoma Cardiovascular: hypertension, hyperlipidemia Respiratory: asthma Gastrointestinal: NONE Hepatic: NONE Renal: NONE Musculoskeletal: NONE Psychiatric: anxiety Endocrine: NONE Blood Disorders: NONE Cancer(s): NONE DOG AND CAT FOOD COOK/Reproductive: NONE Surgical History Surgical History: carotid endarterectomy Psychosocial History Where Do You Live? Home Services at Home: None Smoking Status: Former Smoker ETOH Use: denies use Illicit Drug Use: denies illicit drug use Exam & Diagnostic Data Vital Signs and I&O Vital Signs Date Time Temp Pulse Resp B/P B/P Pulse O2 O2 Flow FiO2 Mean Ox Delivery Rate 08/07 1426 98.1 73 20 138/70 95 Room Air 08/07 1023 Room Air 08/07 0822 72 156/72 08 0821 72 156/72 08 0821 72 156/72 08 0633 98.2 72 20 156/72 95 Room Air 08/06 2243 97.4 67 20 162/78 97 Room Air 08/06 2241 70 148/80 / 2223 70 148/80 08/06 2151 Room Air Intake & Output 08/07 0808/07 0000 08/06 1600 08/06 0808/06 0000 Intake Total 500 380 440 Output Total Balance 500 380 440 Intake, Oral 500 380 440 Output, Urine Patient 214 lb Weight Weight Bed scale Measurement Method Labs/Fletcher Results: Laboratory Tests 08/07 2130 Chemistry Sodium (137 - 145 mmol/L) 142 Potassium (3.5 - 5.1 mmol/L) 3.6 Chloride (98 - 107 mmol/L) 106 Carbon Dioxide (22 - 30 mmol/L) 27 Anion Gap (5 - 16) 9 BUN (7 - 17 mg/dL) 13 Creatinine (0.5 - 1.0 mg/dL) 0.8 Estimated GFR (>60 ml/min) > 60 BUN/Creatinine Ratio (7 - 25 %) 16.3 Troponin I (< 0.11 ng/ml) < 0.01 Hematology CBC w Diff NO MAN DIFF REQ WBC (4.8 - 10.8 /CUMM) 6.4 RBC (4.20 - 5.40 /CUMM) 4.13 L Hgb (12.0 - 16.0 G/DL) 10.8 L Hct (37 - 47 %) 32.7 L MCV (81.0 - 99.0 FL) 79.2 L MCH (27.0 - 31.0 PG) 26.1 L MCHC (33.0 - 37.0 G/DL) 33.0 RDW (11.5 - 14.5 %) 17.6 H Plt Count (130 - 400 /CUMM) 279 MPV (7.4 - 10.4 FL) 8.4 Gran % (42.2 - 75.2 %) 61.2 Lymphocytes % (20.5 - 51.1 %) 23.3 Monocytes % (1.7 - 9.3 %) 9.0 Eosinophils % (0 - 5 %) 5.9 H Basophils % (0.0 - 2.0 %) 0.6 Absolute Granulocytes (1.4 - 6.5 /CUMM) 3.9 Absolute Lymphocytes (1.2 - 3.4 /CUMM) 1.5 Absolute Monocytes (0.10 - 0.60 /CUMM) 0.6 Absolute Eosinophils (0.0 - 0.7 /CUMM) 0.4 Absolute Basophils (0.0 - 0.2 /CUMM) 0 08/06 08/06 1530 1433 Chemistry Sodium (137 - 145 mmol/L) 142 Potassium (3.5 - 5.1 mmol/L) 4.2 Chloride (98 - 107 mmol/L) 103 Carbon Dioxide (22 - 30 mmol/L) 29 Anion Gap (5 - 16) 10 BUN (7 - 17 mg/dL) 16 Creatinine (0.5 - 1.0 mg/dL) 0.9 Estimated GFR (>60 ml/min) > 60 BUN/Creatinine Ratio (7 - 25 %) 17.8 Glucose (65 - 99 mg/dL) 144 H Hemoglobin A1c (4.2 - 5.8 %) 5.7 Calcium (8.4 - 10.2 mg/dL) 9.6 Iron (37 - 170 ug/dL) 44 TIBC (265 - 497 ug/dL) 389 Ferritin (11.1 - 264 ng/mL) 7.5 L Total Bilirubin (0.2 - 1.3 mg/dL) 0.5 AST (14 - 36 U/L) 19 ALT (9 - 52 U/L) 23 Alkaline Phosphatase (<127 U/L) 68 Troponin I (< 0.11 ng/ml) < 0.01 Total Protein (6.3 - 8.2 g/dL) 6.2 L Albumin (3.5 - 5.0 g/dL) 3.8 Globulin (1.9 - 4.2 gm/dL) 2.4 Albumin/Globulin Ratio (1.1 - 2.2 %) 1.6 Triglycerides (<150 mg/dL) 67 Cholesterol (<200 MG/DL) 133 LDL Cholesterol, Calc (65 - 129 mg/dL) 55 L HDL Cholesterol (40 - 60 mg/dL) 65 H Cholesterol/HDL Ratio (0.00 - 4.23 %) 2.0 25-OH Vitamin D Total (30 - 100 ng/ml) 27.6 L Folate (2.76 - 20.0 ng/mL) > 20.0 H TSH (0.270 - 4.200 uIU/mL) 1.860 Free T4 (0.78 - 2.44 ng/dL) 0.97 Prolactin (3.0 - 18.6 ng/mL) 28.6 H Hematology CBC w Diff NO MAN DIFF REQ WBC (4.8 - 10.8 /CUMM) 6.8 RBC (4.20 - 5.40 /CUMM) 4.59 Hgb (12.0 - 16.0 G/DL) 11.9 L Hct (37 - 47 %) 36.7 L MCV (81.0 - 99.0 FL) 79.8 L MCH (27.0 - 31.0 PG) 25.9 L MCHC (33.0 - 37.0 G/DL) 32.5 L RDW (11.5 - 14.5 %) 17.7 H Plt Count (130 - 400 /CUMM) 290 MPV (7.4 - 10.4 FL) 8.1 Gran % (42.2 - 75.2 %) 78.3 H Lymphocytes % (20.5 - 51.1 %) 10.5 L Monocytes % (1.7 - 9.3 %) 6.5 Eosinophils % (0 - 5 %) 4.3 Basophils % (0.0 - 2.0 %) 0.4 Absolute Granulocytes (1.4 - 6.5 /CUMM) 5.3 Absolute Lymphocytes (1.2 - 3.4 /CUMM) 0.7 L Absolute Monocytes (0.10 - 0.60 /CUMM) 0.4 Absolute Eosinophils (0.0 - 0.7 /CUMM) 0.3 Absolute Basophils (0.0 - 0.2 /CUMM) 0 Urines Urine Color Cancelled Urine Clarity Cancelled Urine pH Cancelled Ur Specific [place] Cancelled Urine Protein Cancelled Urine Ketones Cancelled Urine Nitrite Cancelled Urine Bilirubin Cancelled Urine Urobilinogen Cancelled Ur Leukocyte Esterase Cancelled Ur Microscopic Cancelled Urine Hemoglobin Cancelled Urine Glucose Cancelled Assessment/Plan Assessment/Plan Assessment: 1. Syncope /presyncope - the patients story, though not classic, is suggestive of a vagal event with unresponsiveness, diaphoresis, etc. Neurologic event remains to be excluded 2. History of PAF 3. History of CVA 4. Prior CEA 5. HTN 6. HLD Recommendations: - monitor on telemetry for arrhythmis - review echocardiogram - await neurology input - check orthostatic heart rate and BPs - carotid ultrasound pending Consult Acknowledgment - Thank you for your consult request.
[2017-08-07 22:00] VITALS: BP 192/68
--- NOTE | 2017-08-08 06:22 | PN- Housestaff ---
See Addendum Subjective Follow-up For: Syncope Tele-Events Since Last Visit: SR 60-68 Subjective: Ms. López was seen and examined this morning. She is resting comfortably in bed. She denies any issues overnight and states that she was able to get some rest. She has had no further episodes of lightheadedness or syncope. She has been able to tolerate by mouth intake well. Her daughters were both bedside during the course of the evening. Would like to be discharged later today. States that she will be in [place] till August 18 at which point she is hoping to go to [place]. Review of Systems Constitutional: Reports: see HPI. Objective Last 24 Hrs of Vital Signs/I&O Vital Signs Date Time Temp Pulse Resp B/P B/P Pulse O2 O2 Flow FiO2 Mean Ox Delivery Rate 08/07 2229 4.0 08/07 2229 82 192/80 08/07 2200 98.1 68 20 192/68 95 Room Air 08/07 1426 98.1 73 20 138/70 95 Room Air 08/07 1023 Room Air 08/07 0822 72 156/72 08/07 0821 72 156/72 08/07 0821 72 156/72 Intake & Output 08/08 0800 08/08 0000 08/07 1600 Intake Total 400 500 Output Total Balance 400 500 Intake, Oral 400 500 Number 1 Bowel Movements Physical Exam General Appearance: Alert, Oriented X3, Cooperative HEENT: Mucous Membr. moist/pink Cardiovascular: Regular Rate, Normal S1, Normal S2 Lungs: Clear to Auscultation, Normal Air Movement Abdomen: Normal Bowel Sounds, Soft, No Tenderness Neurological: Normal Speech, Normal Tone, Sensation Intact Extremities: No Edema Vascular: Normal Pulses Current Medications: Current Medications Sig/Arabella Start time Last Medication Dose Route Stop Time Status Admin Acetaminophen 500 MG AT BEDTIME 08/07 2099 AC 08/07 PO 2230 Albuterol Sulfate 2 PUF Q6P PRN 08/06 2145 AC INH Atorvastatin Calcium 40 MG 0 08/07 1700 AC 08/07 PO 1614 Atorvastatin Calcium 20 MG 0 08/06 2045 DC 08/06 PO 2217 Budesonide/ 2 PUF BID 08/06 2100 AC 08/08 Formoterol Fumarate INH 0805 Cholecalciferol 2,000 IU DAILY 08/07 09 AC 08/08 PO 0803 Diphenhydramine HCl 25 MG AT BEDTIME 08/06 2315 DC 08/07 PO 0020 Donepezil HCl 10 MG AT BEDTIME 08/06 2200 AC 08/07 PO 2229 Ferrous Sulfate 325 MG DAILY 08/07 899 AC 08/08 PO 0803 Gabapentin 600 MG BID 08/06 2099 AC 08/08 PO 0803 Labetalol HCl 200 MG BID 08/06 2099 AC 08/08 PO 0802 Lisinopril 10 MG DAILY 08/07 899 AC 08/08 PO 0802 Multivitamins 1 TAB DAILY 08/07 899 AC 08/08 Therapeutic PO 0803 Nifedipine 90 MG DAILY 08/07 899 AC 08/08 PO 0802 Non-Formulary 0 SEE ADMIN CRITERIA 08/06 2114 UNV Medication ANY Non-Formulary 0 SEE ADMIN CRITERIA 08/06 2114 UNV Medication ANY Rivaroxaban 15 MG AT BEDTIME 08/060 AC 08/07 PO 2229 Orders ECHO Findings: CONCLUSIONS 1. Moderate aortic sclerosis is present with no valvular stenosis or insufficiency. 2. Mitral leaflet thickening is present with moderate anular calcification and minimal to mild mitral insufficiency with mild left atrial enlargement. 3. There is no significant pericardial fluid present 4. The left ventricular chamber size and systolic function appear normal with no resting wall motion abnormalities. 5. Minimal tricuspid insufficiency is present. The RV systolic pressure was not accurately assessed. Andres Yuan M.D. (Electronically Signed) Final Date: 07 August 2017 11:05 Assessment/Plan Assessment: Ms. 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 Problem list: 1. Syncope 2. Microcytic anemia #Syncope: Patient presented after a syncopal episode. Given her extensive history of stroke, most concerning would be a transient ischemic attack. Trops and EKG x2 have been negative. Carotid artery ultrasound was negative. -Telemetry monitoring -Appreciate cardiology and neurology recommendations -Hold oxybutynin -Hg1AC -EEG, defered after neurology evaluation. -Orthostatic Vital signs. #Microcytic anemia: Patient is asymptomatic with no signs of active bleeding. Iron studies show low ferritin. -Ferrous sulfate supplementation #Chronic medical problems: -Continue other home medications DVT prophylaxis with rivaroxaban Heart healthy diet DNR/DNI Problem List: 1. Syncope Pain Ratin Pain Location: No pain reported Pain Goal: Remain pain free Pain Plan: Tylenol Tomorrow's Labs & Rationales: No Labs - Pending discharge
[2017-08-08 06:45] VITALS: BP 140/68
[2017-08-08 09:11] VITALS: BP 148/68
[2017-08-08] MEDS ORDERED: ATORVASTATIN CA40 M1 PO (13:35)
== END 2017-08-08 13:28 | DRG 312 ==
LOC: ERH 14:28 → ERHI 17:19 → 1NO 17:19 → ENRESERV 18:15 → ENTRNSPT 19:59 → EDTRNSPT 20:08 → 1NO 20:26 → CMPTRNSPT 20:46 → 1NO 22:29 → ENPENDDIS 08-08 13:01 → ENTRNSPT 08-08 13:06 → EDTRNSPTSTS 08-08 13:13 → EDTRNSPT 08-08 13:13 → 1NO 08-08 13:28 → CMPTRNSPT 08-08 13:28
PROVIDERS: Internal Medicine; Physician Assistant Medical
DX: R55 Syncope and collapse (principal); I69.354 Hemiplegia and hemiparesis following cerebral infarction affecting left non-dominant side; G62.9 Polyneuropathy, unspecified; F03.90 Unspecified dementia, unspecified severity, without behavioral disturbance, psychotic disturbance, mood disturbance, and anxiety; I69.398 Other sequelae of cerebral infarction; R32 Unspecified urinary incontinence; I10 Essential (primary) hypertension; Z66 Do not resuscitate; E78.5 Hyperlipidemia, unspecified; J45.909 Unspecified asthma, uncomplicated; H40.9 Unspecified glaucoma; I48.2 Chronic atrial fibrillation; D50.9 Iron deficiency anemia, unspecified; Z79.01 Long term (current) use of anticoagulants; Z87.891 Personal history of nicotine dependence
CPT/HCPCS: 1NSP; 36592; 71045; 82436; 93005; 93010; 93306; 97116-GO; 97161-GP; J3490